=== PATIENT | female | born 1965 | race African-American/Black ===

== ENCOUNTER 2019-11-20 03:59 | Emergency (ER) | payer SELFPAY ==
[~2019-11-20] VITALS: Ht 149.9 cm; Wt 74.8 kg
--- NOTE | 2019-11-20 04:15 | NUR ---
ED Nurse Note: Pt ambulated to ED from home c/o dry cough for several weeks, pt was seen 2 weeks prior and treated for bronchitis without improvement. pt was also tested for COVID, found negative. Pt denies fever or any other symptom besides dry cough, pt VSS, PT is A&Ox4.
[2019-11-20] MEDS ORDERED: PROMETHAZINE-C118 M1 ORAL (04:25)
[2019-11-20 04:30] VITALS: BP 138/76
--- NOTE | 2019-11-20 04:30 | NUR ---
ER DISCHARGE NOTE: Patient is cleared to be discharged per ERMD, pt is aox4, on room air, with stable vital signs. pt was given dc and prescription instructions, pt was able to verbalize understanding, pt id band removed. pt is able to ambulate with steady gait. pt took all belongings. Pt leaving in private vehicle.
--- NOTE | 2019-11-20 04:38 | Emergency Room Report ---
History of Present Illness General Chief Complaint: Upper Respiratory Illness Source: Patient Present Illness HPI Disclaimer: Please note that this report is being documented using [employer] technology. This can lead to erroneous entry secondary to incorrect interpretation by the dictating instrument. HPI: 54-year-old female no reported past medical history presents with a cough. She has had a cough intermittently for the past 2 to 3 weeks. Associated with headache. Denies fever. Cough is dry in nature. She has been to urgent care twice has had 2- COVID tested. Patient also has been given a Z-Srinivas, albuterol inhaler and prednisone. He still complaining of persistent cough and requesting a cough suppressant. No vomiting no diarrhea no fever no urinary complaints. 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 COVID-19 Screening: Negative COVID-19 COVID-19 Testing Source: 2 wks ago at urgent care Patient History Reviewed Nursing Documentation: PMH: Agreed; PSxH: Agreed Nursing Documentation-PMH Past Medical History: No Stated History Review of Systems All Other Systems: negative except mentioned in HPI Physical Exam Vital Signs Date Time Temp Pulse Resp B/P (MAP) Pulse Ox O2 Delivery O2 Flow Rate FiO2 11/20/19 04:12 98.8 83 20 146/81 (102) 99 Room Air Sp02 EP Interpretation: reviewed, normal General Appearance: well appearing, no apparent distress Head: normocephalic, atraumatic Eyes: bilateral eye PERRL, bilateral eye EOMI ENT: hearing grossly normal, moist mucus membranes Neck: full range of motion, supple Respiratory: lungs clear, normal breath sounds, no rhonchi, no respiratory distress, no retraction, no wheezing Cardiovascular #1: normal peripheral pulses, regular rate, rhythm, no murmur Gastrointestinal: non tender, soft, non-distended, no guarding Neurologic: alert, oriented x3, no focal defects Skin: normal color, warm/dry Medical Decision Making Diagnostic Impression: Primary Impression: URI (upper respiratory infection) ER Course 54-year-old female presents for cough. She had a cough for 2 to 3 weeks. She has had multiple negative coronavirus test at his outpatient. She was afebrile. She was in no acute distress. She is requesting symptomatic relief. She is already been given albuterol, prednisone, Z-Srinivas, Tessalon Perles with minimal relief. Patient declined having another chest x-ray done in the ER. Will treat with cough suppressant. Have her follow-up PMD. Encourage p.o. hydration. Stable for discharge. Low suspicion for pneumonia PE or other emergent medical process. Suspect viral URI. Last Vital Signs Date Time Temp Pulse Resp B/P (MAP) Pulse Ox O2 Delivery O2 Flow Rate FiO2 11/20/19 04:12 98.8 83 20 146/81 (102) 99 Room Air Disposition: HOME, SELF-CARE Condition: Stable Scripts Codeine/Promethazine Hcl* (PROMETHAZINE-CODEINE SYRUP*) 118 Ml Syrup 5 ML ORAL Q6H PRN for For Cough, #120 ML 0 Refills Prov: Ernie Roberts M.D. 11/20/19 Patient Instructions: Upper Respiratory Infection, Adult Additional Instructions: Patient is instructed to follow-up with her primary care doctor, primary care clinic or [facility] in 1 to 2 days. Patient instructed to return for any worsening symptoms or concerns. Disclaimer: Please note that this report is being documented using [employer] technology. This can lead to erroneous entry secondary to incorrect interpretation by the dictating instrument. Ernie Roberts M.D. Nov 20, 2019 04:38
== END 2019-11-20 04:30 | disposition home or self-care (01) ==
LOC: EMR 04:10
DX: J06.9 Acute upper respiratory infection, unspecified (principal); Z88.8 Allergy status to other drugs, medicaments and biological substances
CPT/HCPCS: 99282